=== PATIENT | female | born 1985 | race Caucasian/White ===

== ENCOUNTER 2021-06-02 02:59 | Emergency (ER) | payer SELFPAY ==
[2021-06-02 03:35] VITALS: TEMP 98.3; BMI 26.5
[2021-06-02] MEDS ORDERED: LACTATED RINGERS SOLUTION 1000 ML INFUS.BAG IV ONE (04:28)
[2021-06-02] MEDS ORDERED: ACETAMINOPHEN 1000 MG/100 ML VIAL (NON FORMULARY) IVPB ONE (04:34)
[2021-06-02] MEDS ORDERED: ACETAMINOPHEN INJECTION 100 ML IVPB ONE (04:56)
[2021-06-02 05:08] LABS: BASO % 0.7 % (0-2.0); EOS % 0.2 % (0-4.5); HEMATOCRIT 42.8 % (32.4-45.2); HEMOGLOBIN 15.1 GM/dL (10.7-15.3); LYMPH % 23.4 % (8-40); MCH 32.2 pg (25.7-33.7); MCHC 35.3 g/dl (32.0-36.0); MEAN CELL VOLUME 91.2 fl (80-96); MEAN PLT VOLUME 9.2 fl (7.5-11.1); MONO % 6.1 % (3.8-10.2); NEUT % 69.6 % (42.8-82.8); PLATELET COUNT 186 10^3/uL (134-434); RBC 4.69 M/mm3 (3.60-5.2); RDW 12.8 % (11.6-15.6); WHITE BLOOD COUNT 4.4 K/mm3 (4.0-10.0)
[2021-06-02 05:27] LABS: CHLORIDE 101 mmol/L (98-107); SODIUM 136 mmol/L (136-145)
[2021-06-02 05:29] LABS: CALCIUM 8.6 mg/dL (8.5-10.1)
[2021-06-02 05:30] LABS: ALBUMIN 4.1 g/dl (3.4-5.0); ANION GAP 12 MMOL/L (8-16); BLOOD UREA NITROGEN 6.3 mg/dL (7-18); CO2 24 mmol/L (21-32); GLUCOSE,RANDOM 74 mg/dL (74-106); LIPASE 121 U/L (73-393)
[2021-06-02 05:33] LABS: CREATININE 0.5 mg/dL (0.55-1.3); SGOT/AST 68 U/L (15-37); SGPT/ALT 100 U/L (13-61)
[2021-06-02 05:34] LABS: BILIRUBIN,TOTAL 0.6 mg/dL (0.2-1)
[2021-06-02 05:35] LABS: TOT PROT 8.6 g/dl (6.4-8.2)
[2021-06-02 05:36] LABS: ALK PHOS 107 U/L (45-117)
[2021-06-02 06:23] VITALS: BP 134/79; PULSE 82
== END 2021-06-02 06:23 | disposition home or self-care (01) ==
LOC: JER 02:59
PROC: 3E0333Z Introduction of Anti-inflammatory into Peripheral Vein, Percutaneous Approach (ICD-10-PCS; principal; 2021-06-02)
DX: R11.2 Nausea with vomiting, unspecified (principal); R07.9 Chest pain, unspecified
CPT/HCPCS: 36415; 71046-TC-FY; 80053; 83690; 84484; 84703; 85025; 93005; 93010; 99285-25; J0131